=== PATIENT | female | born 1965 | race Caucasian/White ===

== ENCOUNTER 2016-06-09 19:00 | Emergency (ER) | payer BC ==
[~2016-06-09 19:00] MED LIST: MEDROL DOSEPAK4 MG PO; NORCO 325 MG-101 TAB PO; NORFLEX100 MG PO; OMEPRAZOLE D/R20 MG PO
[2016-06-09] MEDS ORDERED: OMEPRAZOLE40 MG PO (19:02)
[2016-06-09 19:42] LABS: BASO # 0.1 10*3/uL (0.0-0.1); BASO % 0.5 % (0.0-1.0); EOS # 0.2 10*3/uL (0.0-0.4); EOS % 2.4 % (1.0-4.0); HEMATOCRIT 34.2 % (37.0-47.0); HEMOGLOBIN 10.3 g/dl (12.0-16.0); LYMPH # 3.2 10*3/uL (1.3-4.4); LYMPH % 35.2 % (27.0-41.0); MEAN CORPUSCULAR HGB 22.6 pg (27.0-31.0); MEAN CORPUSCULAR HGB CONC 30.1 g/dl (33.0-37.0); MEAN PLATELET VOLUME 10.6 fl (9.6-12.3); MONO # 0.6 10*3/uL (0.1-1.0); MONO % 6.8 % (3.0-9.0); NEUT % 54.9 % (47.0-73.0); PLATELET COUNT AUTOMATED 316 10*3/uL (130-400); RED BLOOD COUNT 4.56 10*6/uL (4.10-5.10); RED CELL DISTRI WIDTH 15.6 % (0-14.5); WHITE BLOOD COUNT 9.1 10*3/uL (4.8-10.8)
[2016-06-09 20:00] LABS: ALBUMIN 3.1 gm/dl (3.1-4.5); ALKALINE PHOSPHATASE 61 U/L (45-117); BILIRUBIN, TOTAL 0.2 mg/dl (0.2-1.0); BUN 8 mg/dl (7-24); CARBON DIOXIDE 28 mmol/L (21-32); CHLORIDE 107 mmol/L (98-107); EST GLOM FILT AFRICAN AMERICAN > 60 ml/min; GLUCOSE 108 mg/dL (65-99); SGOT/AST 16 IU/L (3-35); SGPT/ALT 17 U/L (12-78); SODIUM 142 mmol/L (136-145); TOTAL PROTEIN 6.3 gm/dL (6.4-8.2)
[2016-06-09 20:08] LABS: C-REACTIVE PROTEIN < 0.29 MG/DL (0-0.3); TROPONIN I < 0.015 ng/ml (<0.045)
[2016-06-09 20:36] LABS: BILIRUBIN NEGATIVE (NEGATIVE); BLOOD 1+ (NEGATIVE); CLARITY CLEAR (CLEAR); COLOR YELLOW (YELLOW); GLUCOSE NEGATIVE (NEGATIVE); KETONE NEGATIVE (NEGATIVE); LEUKO ESTERASE NEGATIVE (NEGATIVE); NITRITE NEGATIVE (NEGATIVE); PH 6.5 (5.0-9.0); PROTEIN NEGATIVE (NEGATIVE); SPECIFIC GRAVITY 1.015 (1.005-1.030)
[2016-06-09 20:58] LABS: MUCOUS 1+; URINE REFLEX COMMENT YES (NO)
[2016-06-09 21:24] VITALS: BP 120/47
== END 2016-06-09 21:43 | disposition home or self-care (01) ==
LOC: ED 19:00
PROVIDERS: Emergency Medicine Emergency Medical Services
DX: R00.1 Bradycardia, unspecified (principal); R55 Syncope and collapse; F17.200 Nicotine dependence, unspecified, uncomplicated; G43.909 Migraine, unspecified, not intractable, without status migrainosus; Z86.73 Personal history of transient ischemic attack (TIA), and cerebral infarction without residual deficits

== ENCOUNTER → 2016-06-11 | Outpatient (CLI) | payer BC ==
[~2016-06-11] MED LIST changes: +OMEPRAZOLE40 MG PO
--- NOTE | ~2016-06-11 | HM ---
[place], [place] HOLTER MONITOR REPORT NAME: TRENA CRATER UNIT #: [id number] ROOM: DOCTOR: HANS CHERY MD BIRTHDATE: [birth year] DOS: 06/12/2016 24 HOUR HOLTER MONITOR The patient was monitored from 06/11/2016-06/12/2016. The recording was scanned and is being interpreted on 06/12/2016. INDICATIONS: Bradycardia. FINDINGS: Basic rhythm was sinus with average heart rate of 66 beats per minute, heart rate varied from 47 beats per minute at 1:58 a.m. to 104 beats per minute at 7:25 a.m. There were 30 premature ventricular contractions recorded in the 24-hour period making them very rare. There were 40 premature atrial contractions recorded in 24 hours. No SVT or VT was seen. The patient reported dizziness, shortness of breath and feeling very sick. She was in sinus rhythm on each occasion with rates of between 70 and 80. IMPRESSION: 1. Normal 24-hour Holter monitor. 2. No arrhythmias noted to explain the patient's symptoms. HANS CHERY MD CM:HOLTER:HOLTER MONITOR REPORT 31 23 HANS CHERY MD
== END | disposition home or self-care (01) ==
LOC: CARD 10:35
DX: R00.1 Bradycardia, unspecified (principal); R55 Syncope and collapse

== ENCOUNTER 2016-10-01 09:30 | Emergency (ER) | payer SELFPAY ==
[~2016-10-01] VITALS: Ht 167.6 cm; Wt 68.0 kg
[2016-10-01 10:26] LABS: BASO # 0.1 10*3/uL (0.0-0.1); BASO % 0.6 % (0.0-1.0); EOS # 0.2 10*3/uL (0.0-0.4); EOS % 2.8 % (1.0-4.0); HEMATOCRIT 44.3 % (37.0-47.0); HEMOGLOBIN 14.2 g/dl (12.0-16.0); LYMPH # 2.5 10*3/uL (1.3-4.4); MEAN CELL VOLUME 83.9 fl (81.0-99.0); MEAN CORPUSCULAR HGB 26.9 pg (27.0-31.0); MEAN CORPUSCULAR HGB CONC 32.1 g/dl (33.0-37.0); MEAN PLATELET VOLUME 10.3 fl (9.6-12.3); MONO # 0.6 10*3/uL (0.1-1.0); MONO % 7.9 % (3.0-9.0); NEUT # 4.4 10*3/uL (2.3-7.9); NEUT % 56.3 % (47.0-73.0); PLATELET COUNT AUTOMATED 264 10*3/uL (130-400); RED BLOOD COUNT 5.28 10*6/uL (4.10-5.10); RED CELL DISTRI WIDTH 14.6 % (0-14.5); WHITE BLOOD COUNT 7.7 10*3/uL (4.8-10.8)
[2016-10-01 10:33] LABS: INTERNATIONAL NORM RATIO 1.1 (2.0-3.5); PROTHROMBIN TIME 11.2 SECONDS (9.0-12.4)
[2016-10-01 10:41] LABS: ALBUMIN 3.5 gm/dl (3.1-4.5); ALKALINE PHOSPHATASE 66 U/L (45-117); BILIRUBIN, TOTAL 0.4 mg/dl (0.2-1.0); BUN 8 mg/dl (7-24); CARBON DIOXIDE 26 mmol/L (21-32); CHLORIDE 107 mmol/L (98-107); EST GLOM FILT AFRICAN AMERICAN > 60 ml/min; GLUCOSE 105 mg/dL (65-99); MAGNESIUM 1.8 mg/dL (1.5-2.1); POTASSIUM 3.9 mmol/L (3.5-5.1); SGOT/AST 12 IU/L (3-35); SGPT/ALT 18 U/L (12-78); SODIUM 140 mmol/L (136-145); TOTAL PROTEIN 7.1 gm/dL (6.4-8.2)
[2016-10-01 10:43] LABS: TROPONIN I < 0.015 ng/ml (<0.045)
[2016-10-01 12:00] VITALS: BP 122/62
[2016-10-01] MEDS ORDERED: Zofran4 MG PO (12:21)
== END 2016-10-01 12:29 | disposition home or self-care (01) ==
LOC: ED 09:30
PROVIDERS: Emergency Medicine
DX: R14.2 Eructation (principal); R10.32 Left lower quadrant pain; F17.200 Nicotine dependence, unspecified, uncomplicated; Z79.899 Other long term (current) drug therapy

== ENCOUNTER → 2021-02-15 | Outpatient (CLI) | payer OTHER ==
[~2021-02-15] MED LIST changes: +Zofran4 MG PO
== END | disposition home or self-care (01) ==
LOC: COVID19 15:47
PROVIDERS: ATTEND Internal Medicine
DX: Z11.52 Encounter for screening for COVID-19 (principal)

== ENCOUNTER → 2021-09-28 | Outpatient (CLI) | payer OTHER | END | disposition home or self-care (01) | LOC: RAD 07:38 | PROVIDERS: ATTEND Internal Medicine | DX: U07.1 COVID-19 (principal) ==

== ENCOUNTER 2022-01-08 15:19 | Emergency (ER) | payer OTHER ==
[~2022-01-08] VITALS: Ht 167.6 cm; Wt 68.0 kg
[2022-01-08 15:26] VITALS: BP 148/66
[2022-01-08 16:16] LABS: BASO # 0.1 10*3/uL (0.0-0.1); EOS # 0.2 10*3/uL (0.0-0.4); EOS % 2.5 % (1.0-4.0); HEMATOCRIT 34.8 % (37.0-47.0); LYMPH # 2.4 10*3/uL (1.3-4.4); LYMPH % 29.8 % (27.0-41.0); MEAN CELL VOLUME 66.5 fl (81.0-99.0); MEAN CORPUSCULAR HGB 18.4 pg (27.0-31.0); MEAN CORPUSCULAR HGB CONC 27.6 g/dl (33.0-37.0); MEAN PLATELET VOLUME 9.5 fl (9.6-12.3); MONO # 0.6 10*3/uL (0.1-1.0); MONO % 7.4 % (3.0-9.0); NEUT # 4.8 10*3/uL (2.3-7.9); NEUT % 59.1 % (47.0-73.0); PLATELET COUNT AUTOMATED 268 10*3/uL (130-400); RED BLOOD COUNT 5.23 10*6/uL (4.10-5.10); RED CELL DISTRI WIDTH 18.7 % (0-14.5); WHITE BLOOD COUNT 8.2 10*3/uL (4.8-10.8)
[2022-01-08 16:28] LABS: ACT PARTIAL THROMBO TIME 24.2 SECONDS (20.0-32.1); INTERNATIONAL NORM RATIO 1.1 (2.0-3.5)
[2022-01-08 16:40] LABS: ALKALINE PHOSPHATASE 92 U/L (45-117); BUN 9 mg/dl (7-24); CHLORIDE 105 mmol/L (98-107); CREATININE 0.63 mg/dL (0.55-1.02); LIPASE 131 U/L (73-393); POTASSIUM 3.3 mmol/L (3.5-5.1); SGPT/ALT 22 U/L (12-78); SODIUM 137 mmol/L (136-145); TOTAL PROTEIN 7.2 gm/dL (6.4-8.2)
[2022-01-08] MEDS ORDERED: ONDANSETRON4 MG SL (17:11)
[2022-01-08 18:19] LABS: BILIRUBIN Negative (Negative); BLOOD Negative (Negative); CLARITY Cloudy (Clear); COLOR Yellow (Yellow); GLUCOSE Negative (Negative); KETONE Trace (Negative); LEUKO ESTERASE 2+ (Negative); NITRITE Negative (Negative); PH 5.5 (4.5-8.0); SPECIFIC GRAVITY 1.025 (1.001-1.030)
[2022-01-08 18:26] LABS: BACTERIA 2+; WBC 16-20 wbc/hpf (0-5)
[2022-01-08 18:27] LABS: HYALINE CAST 0-2; MUCOUS 2+
== END 2022-01-08 18:06 | disposition home or self-care (01) ==
LOC: ED 15:19
PROVIDERS: Family Medicine
DX: B34.9 Viral infection, unspecified (principal); Z20.822 Contact with and (suspected) exposure to COVID-19; E87.6 Hypokalemia; Z79.899 Other long term (current) drug therapy; Z98.51 Tubal ligation status

== ENCOUNTER 2022-02-06 18:51 | Emergency (ER) | payer OTHER ==
[~2022-02-06] VITALS: Wt 68.0 kg
[~2022-02-06 18:51] MED LIST changes: +ONDANSETRON4 MG SL
[2022-02-06 19:43] LABS: BASO # 0.1 10*3/uL (0.0-0.1); BASO % 0.9 % (0.0-1.0); EOS # 0.3 10*3/uL (0.0-0.4); EOS % 3.4 % (1.0-4.0); LYMPH # 2.9 10*3/uL (1.3-4.4); LYMPH % 37.5 % (27.0-41.0); MEAN CELL VOLUME 67.1 fl (81.0-99.0); MEAN CORPUSCULAR HGB 18.1 pg (27.0-31.0); MEAN PLATELET VOLUME 9.9 fl (9.6-12.3); MONO # 0.7 10*3/uL (0.1-1.0); MONO % 8.4 % (3.0-9.0); NEUT # 3.8 10*3/uL (2.3-7.9); NEUT % 49.4 % (47.0-73.0); PLATELET COUNT AUTOMATED 260 10*3/uL (130-400); RED BLOOD COUNT 4.92 10*6/uL (4.10-5.10); RED CELL DISTRI WIDTH 18.6 % (0-14.5); WHITE BLOOD COUNT 7.7 10*3/uL (4.8-10.8)
[2022-02-06 19:59] LABS: ALKALINE PHOSPHATASE 95 U/L (46-116); BUN 10 mg/dl (9-23); CHLORIDE 104 mmol/L (98-107); CREATININE 0.59 mg/dL (0.55-1.02); POTASSIUM 3.4 mmol/L (3.4-5.1); SGPT/ALT 9 U/L (10-49); SODIUM 139 mmol/L (136-145); TOTAL PROTEIN 6.9 gm/dL (6.0-8.0)
[2022-02-06 22:59] VITALS: BP 153/62
== END 2022-02-06 23:25 | disposition home or self-care (01) ==
LOC: ED 18:51
PROVIDERS: Internal Medicine
DX: I10 Essential (primary) hypertension (principal); R51.9 Headache, unspecified; Z98.51 Tubal ligation status

== ENCOUNTER 2022-07-13 21:22 | Emergency (ER) | payer OTHER ==
[~2022-07-13] VITALS: Wt 68.0 kg
[2022-07-13 21:45] VITALS: BP 147/63
[2022-07-14 02:12] LABS: COLOR Yellow (Yellow)
[2022-07-14 02:15] LABS: BILIRUBIN Negative (Negative); GLUCOSE Negative (Negative); KETONE Negative (Negative); NITRITE Negative (Negative); PH 6.5 (4.5-8.0); SPECIFIC GRAVITY 1.015 (1.001-1.030)
[2022-07-14 02:24] LABS: BLOOD Trace-Lysed (Negative); CLARITY Cloudy (Clear); LEUKO ESTERASE 2+ (Negative)
[2022-07-14 02:25] LABS: BACTERIA 1+; WBC 21-30 wbc/hpf (0-5)
[2022-07-14] MEDS ORDERED: OMNICEF300 MG PO (04:07)
== END 2022-07-14 04:16 | disposition home or self-care (01) ==
LOC: ED 21:22
PROVIDERS: Emergency Medicine
DX: N39.0 Urinary tract infection, site not specified (principal); K21.9 Gastro-esophageal reflux disease without esophagitis; Z98.51 Tubal ligation status

== ENCOUNTER 2023-02-15 04:58 | Emergency (ER) | payer OTHER ==
[~2023-02-15] VITALS: Ht 167.6 cm; Wt 100.4 kg
[~2023-02-15 04:58] MED LIST changes: +OMNICEF300 MG PO
[2023-02-15] MEDS ORDERED: LOSARTAN-HCTZ1 EAC2 PO (05:09)
[2023-02-15] MEDS ORDERED: LOSARTAN-HCTZ1 EACH PO (05:10)
[2023-02-15] MEDS ORDERED: DULOXETINE HCL60 MG PO (05:10)
[2023-02-15] MEDS ORDERED: PANTOPRAZOLE SO40 MG PO (05:10)
[2023-02-15] MEDS ORDERED: PREDNISONE20 M1 PO (05:11)
[2023-02-15 06:14] LABS: BILIRUBIN Negative (Negative); BLOOD Trace-Lysed (Negative); CLARITY Clear (Clear); COLOR Yellow (Yellow); GLUCOSE Negative (Negative); KETONE Negative (Negative); LEUKO ESTERASE Trace (Negative); NITRITE Negative (Negative); PH 5.5 (4.5-8.0); UROBILINOGEN 0.2 E.U./dl (0.0-1.0)
[2023-02-15 06:28] LABS: BASO # 0.1 10*3/uL (0.0-0.1); BASO % 0.7 % (0.0-1.0); EOS # 0.2 10*3/uL (0.0-0.4); HEMATOCRIT 42.8 % (37.0-47.0); LYMPH # 3.2 10*3/uL (1.3-4.4); LYMPH % 35.5 % (27.0-41.0); MEAN CELL VOLUME 77.8 fl (81.0-99.0); MEAN CORPUSCULAR HGB 22.4 pg (27.0-31.0); MEAN CORPUSCULAR HGB CONC 28.7 g/dl (33.0-37.0); MEAN PLATELET VOLUME 9.6 fl (9.6-12.3); MONO # 0.7 10*3/uL (0.1-1.0); MONO % 7.9 % (3.0-9.0); NEUT # 4.8 10*3/uL (2.3-7.9); NEUT % 53.6 % (47.0-73.0); PLATELET COUNT AUTOMATED 341 10*3/uL (130-400); RED CELL DISTRI WIDTH 17.7 % (0-14.5)
[2023-02-15 06:35] LABS: BACTERIA 3+; EPITHELIAL CELLS 16-20; MUCOUS 2+
[2023-02-15 06:46] LABS: ACT PARTIAL THROMBO TIME 27.7 SECONDS (20.0-32.1)
[2023-02-15 06:51] LABS: ALKALINE PHOSPHATASE 106 U/L (46-116); BUN 10 mg/dl (9-23); CHLORIDE 105 mmol/L (98-107); LIPASE 43 U/L (12-53); POTASSIUM 3.2 mmol/L (3.4-5.1); SGPT/ALT 14 U/L (5-49); TOTAL PROTEIN 7.2 gm/dL (6.0-8.0)
[2023-02-15 07:32] VITALS: BP 185/73
== END 2023-02-15 08:15 | disposition home or self-care (01) ==
LOC: ED 04:58
PROVIDERS: Internal Medicine
DX: I10 Essential (primary) hypertension (principal); R10.2 Pelvic and perineal pain; K21.9 Gastro-esophageal reflux disease without esophagitis; D64.9 Anemia, unspecified; Z98.51 Tubal ligation status; Z79.899 Other long term (current) drug therapy

== ENCOUNTER 2023-07-31 12:01 | Emergency (ER) | payer OTHER ==
[~2023-07-31] VITALS: Ht 167.6 cm; Wt 68.0 kg
[~2023-07-31 12:01] MED LIST changes: +DULOXETINE HCL60 MG PO; +LOSARTAN-HCTZ1 EAC2 PO; +LOSARTAN-HCTZ1 EACH PO; +PANTOPRAZOLE SO40 MG PO; +PREDNISONE20 M1 PO
[2023-07-31 12:16] VITALS: BP 125/80
[2023-07-31] MEDS ORDERED: Clindamycin Phosphate 50 ML IV ONE (13:15)
[2023-07-31] MEDS ORDERED: IOHEXOL 300 MG/ML 100 ML VIAL IV ONE (13:30)
[2023-07-31 13:37] LABS: BASO # 0.1 10*3/uL (0.0-0.1); BASO % 0.4 % (0.0-1.0); EOS # 0.2 10*3/uL (0.0-0.4); EOS % 1.8 % (1.0-4.0); HEMATOCRIT 42.3 % (37.0-47.0); LYMPH # 2.3 10*3/uL (1.3-4.4); LYMPH % 19.6 % (27.0-41.0); MEAN CELL VOLUME 79.4 fl (81.0-99.0); MEAN CORPUSCULAR HGB 23.5 pg (27.0-31.0); MEAN CORPUSCULAR HGB CONC 29.6 g/dl (33.0-37.0); MEAN PLATELET VOLUME 10.1 fl (9.6-12.3); MONO # 0.7 10*3/uL (0.1-1.0); MONO % 6.1 % (3.0-9.0); NEUT # 8.6 10*3/uL (2.3-7.9); NEUT % 71.5 % (47.0-73.0); PLATELET COUNT AUTOMATED 348 10*3/uL (130-400); RED BLOOD COUNT 5.33 10*6/uL (4.10-5.10); RED CELL DISTRI WIDTH 16.3 % (0-14.5)
[2023-07-31] MEDS ORDERED: IOHEXOL 300 MG/ML 100 ML VIAL ONE (13:41)
[2023-07-31 13:55] LABS: BUN 8 mg/dl (9-23); CHLORIDE 99 mmol/L (98-107); POTASSIUM 3.1 mmol/L (3.4-5.1)
[2023-07-31] MEDS ORDERED: POTASSIUM CHLORIDE 20 MEQ TAB PO ONE (14:45)
[2023-07-31] MEDS ORDERED: CLINDAMYCIN HC300 MG PO (15:12)
== END 2023-07-31 15:25 | disposition home or self-care (01) ==
LOC: ED 12:01
PROVIDERS: Emergency Medicine
DX: L03.211 Cellulitis of face (principal); E87.6 Hypokalemia; K04.7 Periapical abscess without sinus; K21.9 Gastro-esophageal reflux disease without esophagitis; D64.9 Anemia, unspecified; I10 Essential (primary) hypertension; Z98.51 Tubal ligation status

== ENCOUNTER 2024-04-02 10:17 | Emergency (ER) | payer OTHER ==
[~2024-04-02] VITALS: Ht 167.6 cm; Wt 68.0 kg
[~2024-04-02 10:17] MED LIST changes: +CLINDAMYCIN HC300 MG PO
[2024-04-02 11:39] VITALS: BP 154/77
[2024-04-02] MEDS ORDERED: OMEPRAZOLE40 MG PO (11:41)
[2024-04-02] MEDS ORDERED: Acetaminophen/Hydrocodone 5 MG/325 MG TABLET PO ONE (12:00)
[2024-04-02] MEDS ORDERED: TRAMADOL HCL50 MG PO (13:04)
== END 2024-04-02 13:11 | disposition home or self-care (01) ==
LOC: ED 10:17
DX: G62.9 Polyneuropathy, unspecified (principal); M25.572 Pain in left ankle and joints of left foot; I10 Essential (primary) hypertension; K21.9 Gastro-esophageal reflux disease without esophagitis; M79.7 Fibromyalgia; M06.9 Rheumatoid arthritis, unspecified; Z96.652 Presence of left artificial knee joint; Z79.899 Other long term (current) drug therapy

== ENCOUNTER 2024-10-26 10:57 | Inpatient (IN) | payer OTHER ==
[~2024-10-26] VITALS: Ht 167.6 cm; Wt 92.5 kg
[~2024-10-26 10:57] MED LIST changes: +TRAMADOL HCL50 MG PO
[2024-10-26 11:15] VITALS: BP 152/77
[2024-10-26] MEDS ORDERED: Ondansetron Hydrochloride 4 MG/2 ML VIAL IV ONE (11:35)
[2024-10-26] MEDS ORDERED: diphenhydrAMINE hydrochloride 50 MG/ML VIAL IV ONE (11:35)
[2024-10-26] MEDS ORDERED: SODIUM CHLORIDE 0.9% 1,000 ML IV ONE (11:35)
[2024-10-26 11:54] LABS: BASO # 0.1 10*3/uL (0.0-0.1); BASO % 0.7 % (0.0-1.0); EOS # 0.2 10*3/uL (0.0-0.4); EOS % 2.5 % (1.0-4.0); MEAN CELL VOLUME 79.8 fl (81.0-99.0); MEAN CORPUSCULAR HGB 24.2 pg (27.0-31.0); MEAN PLATELET VOLUME 10.0 fl (9.6-12.3); MONO # 0.6 10*3/uL (0.1-1.0); MONO % 7.0 % (3.0-9.0); NEUT # 5.4 10*3/uL (2.3-7.9); NEUT % 65.3 % (47.0-73.0); NUCLEATED RED BLOOD CELL 0.0 % (0.0-0.0); NUCLEATED RED BLOOD CELL 0.0 10*3/uL (0.0-0.0); PLATELET COUNT AUTOMATED 270 10*3/uL (130-400); RED CELL DISTRI WIDTH 15.2 % (0-14.5)
[2024-10-26 12:16] LABS: BUN 9 mg/dl (9-23)
[2024-10-26] MEDS ORDERED: ACETAMINOPHEN 325 MG TAB PO PRN (14:20)
[2024-10-26] MEDS ORDERED: Acetaminophen/Hydrocodone 5 MG/325 MG TABLET PO PRN (14:20)
== END 2024-10-26 17:51 | disposition left against medical advice (07) | DRG 383 ==
LOC: ED 10:57 → EDHOLD 12:45 → 5E 12:45 → 4E 14:55
PROVIDERS: Nurse Practitioner Family; ADMIT Internal Medicine; ATTEND Internal Medicine
DX: L03.211 Cellulitis of face (principal); Z96.652 Presence of left artificial knee joint; I10 Essential (primary) hypertension; G62.9 Polyneuropathy, unspecified; R29.898 Other symptoms and signs involving the musculoskeletal system; M79.7 Fibromyalgia; G90.50 Complex regional pain syndrome I, unspecified; Z90.49 Acquired absence of other specified parts of digestive tract; Z86.73 Personal history of transient ischemic attack (TIA), and cerebral infarction without residual deficits; Z83.3 Family history of diabetes mellitus; Z79.899 Other long term (current) drug therapy; Z87.891 Personal history of nicotine dependence

== ENCOUNTER 2024-10-28 09:47 | Inpatient (IN) | payer OTHER ==
[~2024-10-28] VITALS: Ht 167.6 cm; Wt 95.4 kg
[2024-10-28 11:11] VITALS: BP 161/62
[2024-10-28] MEDS ORDERED: IOHEXOL 300 MG/ML 100 ML VIAL IV ONE (11:35)
[2024-10-28] MEDS ORDERED: SODIUM CHLORIDE 0.9% 1,000 ML IV ONE (11:35)
[2024-10-28] MEDS ORDERED: IOHEXOL 300 MG/ML 100 ML VIAL ONE (11:59)
[2024-10-28 12:27] LABS: BASO # 0.1 10*3/uL (0.0-0.1); BASO % 0.7 % (0.0-1.0); EOS # 0.2 10*3/uL (0.0-0.4); EOS % 2.1 % (1.0-4.0); MEAN CELL VOLUME 81.0 fl (81.0-99.0); MEAN CORPUSCULAR HGB 24.4 pg (27.0-31.0); MEAN PLATELET VOLUME 10.1 fl (9.6-12.3); MONO # 0.4 10*3/uL (0.1-1.0); MONO % 5.5 % (3.0-9.0); NEUT # 4.8 10*3/uL (2.3-7.9); NEUT % 65.2 % (47.0-73.0); NUCLEATED RED BLOOD CELL 0.0 % (0.0-0.0); NUCLEATED RED BLOOD CELL 0.0 10*3/uL (0.0-0.0); PLATELET COUNT AUTOMATED 271 10*3/uL (130-400); RED CELL DISTRI WIDTH 15.3 % (0-14.5)
[2024-10-28 12:48] LABS: BUN 8 mg/dl (9-23)
[2024-10-28] MEDS ORDERED: TRAZODONE150 MG PO (13:21)
[2024-10-28] MEDS ORDERED: Acetaminophen/Hydrocodone 5 MG/325 MG TABLET PO PRN (14:50)
[2024-10-28] MEDS ORDERED: ACETAMINOPHEN 325 MG TAB PO PRN (14:50)
[2024-10-28 15:19] VITALS: BP 128/64
[2024-10-28] MEDS ORDERED: VANCOMYCIN/WATER FOR INJ (PEG) 300 ML IV SCH (16:00)
[2024-10-28 18:00] VITALS: BP 137/69
[2024-10-28 20:00] VITALS: BP 149/65
[2024-10-29] VITALS: BP 148/44
[2024-10-29 06:14] LABS: BUN 8 mg/dl (9-23); FREE T4 1.07 ng/dl (0.89-1.76); LDL CHOLESTEROL 158 mg/dL (9-159); SGPT/ALT 10 U/L (5-49)
[2024-10-29 06:49] LABS: BASO # 0.1 10*3/uL (0.0-0.1); BASO % 0.8 % (0.0-1.0); EOS # 0.2 10*3/uL (0.0-0.4); EOS % 3.0 % (1.0-4.0); MEAN CELL VOLUME 80.8 fl (81.0-99.0); MEAN CORPUSCULAR HGB 24.2 pg (27.0-31.0); MEAN PLATELET VOLUME 10.3 fl (9.6-12.3); MONO # 0.4 10*3/uL (0.1-1.0); MONO % 6.9 % (3.0-9.0); NEUT # 3.3 10*3/uL (2.3-7.9); NEUT % 52.5 % (47.0-73.0); NUCLEATED RED BLOOD CELL 0.0 % (0.0-0.0); NUCLEATED RED BLOOD CELL 0.0 10*3/uL (0.0-0.0); PLATELET COUNT AUTOMATED 246 10*3/uL (130-400); RED CELL DISTRI WIDTH 15.5 % (0-14.5)
[2024-10-29 07:43] LABS: VITAMIN D, 25-HYDROXY 42.8 ng/mL (30-100)
[2024-10-29 08:00] VITALS: BP 142/54
[2024-10-29] MEDS ORDERED: LISINOPRIL 10 MG TAB PO SCH (10:00)
[2024-10-29] MEDS ORDERED: MUPIROCIN 15 GM TUBE T SCH (11:55)
[2024-10-29 12:00] VITALS: BP 133/59
[2024-10-29 16:00] VITALS: BP 106/74
[2024-10-29 20:00] VITALS: BP 152/64
[2024-10-29] MEDS ORDERED: AMMONIUM LACTATE 12% LOTION T SCH (22:00)
[2024-10-30] VITALS: BP 157/64
[2024-10-30 06:39] LABS: BUN 12 mg/dl (9-23)
[2024-10-30 06:45] LABS: BASO # 0.1 10*3/uL (0.0-0.1); BASO % 1.0 % (0.0-1.0); EOS # 0.2 10*3/uL (0.0-0.4); EOS % 3.7 % (1.0-4.0); MEAN CELL VOLUME 81.1 fl (81.0-99.0); MEAN CORPUSCULAR HGB 24.3 pg (27.0-31.0); MEAN PLATELET VOLUME 10.3 fl (9.6-12.3); MONO # 0.4 10*3/uL (0.1-1.0); MONO % 7.1 % (3.0-9.0); NEUT # 2.4 10*3/uL (2.3-7.9); NEUT % 47.1 % (47.0-73.0); NUCLEATED RED BLOOD CELL 0.0 % (0.0-0.0); NUCLEATED RED BLOOD CELL 0.0 10*3/uL (0.0-0.0); PLATELET COUNT AUTOMATED 261 10*3/uL (130-400); RED CELL DISTRI WIDTH 15.3 % (0-14.5)
[2024-10-30 08:00] VITALS: BP 167/71
[2024-10-30] MEDS ORDERED: OMEPRAZOLE 20 MG CAP PO SCH (10:00)
[2024-10-30 12:00] VITALS: BP 147/73
[2024-10-30] MEDS ORDERED: ZYVOX600 MG PO (17:02)
== END 2024-10-30 19:07 | disposition home or self-care (01) | DRG 383 ==
LOC: ED 09:47 → 4E 14:00 → EDHOLD 14:00 → 4E 16:32
PROVIDERS: Nurse Practitioner Family; Student in an Organized Health Care Education/Training Program; ADMIT Internal Medicine; ATTEND Internal Medicine
DX: L03.213 Periorbital cellulitis (principal); E87.1 Hypo-osmolality and hyponatremia; I10 Essential (primary) hypertension; K21.9 Gastro-esophageal reflux disease without esophagitis; M79.7 Fibromyalgia; F17.210 Nicotine dependence, cigarettes, uncomplicated; F32.A Depression, unspecified; Z79.899 Other long term (current) drug therapy; Z79.01 Long term (current) use of anticoagulants; Z79.2 Long term (current) use of antibiotics; Z90.49 Acquired absence of other specified parts of digestive tract; Z83.3 Family history of diabetes mellitus; Z86.73 Personal history of transient ischemic attack (TIA), and cerebral infarction without residual deficits; Z71.6 Tobacco abuse counseling